=== PATIENT | male | born 1980 | race African-American/Black ===

== ENCOUNTER 2017-12-02 07:29 | Emergency (ER) | payer OTHER ==
[~2017-12-02] VITALS: Ht 180.3 cm; Wt 99.8 kg
[~2017-12-02 07:29] MED LIST: ALKA-SELTZER E500 M1; CORTISPORIN OTI10 M2 OTIC; HYDROCODONE-AP1 EAC6 PO; PREDNISONE 20 M20 M1 PO; SENNA S TABLET1 EACH PO; ZANTAC 150MG T150 MG PO
[2017-12-02] MEDS ORDERED: NORFLEX100 MG PO (08:42)
[2017-12-02] MEDS ORDERED: NAPROSYN500 MG PO (08:42)
[2017-12-02 09:38] VITALS: BP 135/93
[2018-07-31] MEDS ORDERED: FLEXERIL PO (06:15)
[2018-07-31] MEDS ORDERED: NAPROSYN500 MG PO (06:15)
== END 2017-12-02 09:40 | disposition home or self-care (01) ==
LOC: ER 07:29
DX: G44.209 Tension-type headache, unspecified, not intractable (principal); I10 Essential (primary) hypertension; K21.9 Gastro-esophageal reflux disease without esophagitis; F17.210 Nicotine dependence, cigarettes, uncomplicated

== ENCOUNTER 2019-06-11 03:49 | Emergency (ER) | payer OTHER ==
[~2019-06-11] VITALS: Ht 180.3 cm; Wt 99.8 kg
[~2019-06-11 03:49] MED LIST changes: +FLEXERIL PO; +NAPROSYN500 MG PO; +NORFLEX100 MG PO
[2019-06-11] MEDS ORDERED: ACETYL SALICYL500 GM PO (04:23)
[2019-06-11] MEDS ORDERED: PROMS25 WY RECTAL (05:41)
[2019-06-11] MEDS ORDERED: BUTALB-APAP-CA1 EACH PO (05:41)
[2019-06-11 05:52] VITALS: BP 161/70
== END 2019-06-11 05:57 | disposition home or self-care (01) ==
LOC: ER 03:49
DX: G43.909 Migraine, unspecified, not intractable, without status migrainosus (principal); R11.2 Nausea with vomiting, unspecified; F17.210 Nicotine dependence, cigarettes, uncomplicated; K21.9 Gastro-esophageal reflux disease without esophagitis; Z79.82 Long term (current) use of aspirin

== ENCOUNTER 2020-11-20 18:02 | Emergency (ER) | payer OTHER ==
[~2020-11-20] VITALS: Ht 180.3 cm; Wt 105.7 kg
[~2020-11-20 18:02] MED LIST changes: +ACETYL SALICYL500 GM PO; +BUTALB-APAP-CA1 EACH PO; +PROMS25 WY RECTAL
[2020-11-20 20:04] LABS: CALCIUM 9.2 mg/dL (8.5-10.1); CREATININE 1.3 mg/dL (0.7-1.3); POTASSIUM 3.6 mmol/L (3.5-5.1)
[2020-11-20 20:05] LABS: MAGNESIUM 2.1 mg/dL (1.8-2.4)
[2020-11-20 20:51] VITALS: BP 141/93
[2020-11-20] MEDS ORDERED: ZANAFLEX4 MG PO (21:10)
== END 2020-11-20 21:18 | disposition home or self-care (01) ==
LOC: ER 18:02
PROVIDERS: Nurse Practitioner
DX: M79.661 Pain in right lower leg (principal); M79.662 Pain in left lower leg; G43.909 Migraine, unspecified, not intractable, without status migrainosus; K21.9 Gastro-esophageal reflux disease without esophagitis; F17.210 Nicotine dependence, cigarettes, uncomplicated

== ENCOUNTER 2020-11-30 20:28 | Emergency (ER) | payer OTHER ==
[~2020-11-30] VITALS: Ht 180.3 cm; Wt 104.3 kg
[~2020-11-30 20:28] MED LIST changes: +ZANAFLEX4 MG PO
[2020-11-30] MEDS ORDERED: MUCINEX600 MG PO (20:41)
[2020-11-30 21:33] LABS: ABSOLUTE NEUTROPHILS 3.1 thou/uL (1.4-8.2); BASOPHILS 0.2 % (0.0-2.0); HEMATOCRIT 46.7 % (42.0-52.0); HEMOGLOBIN 15.5 gm/dL (14.0-18.0); LYMPHOCYTES 30.5 % (24.0-44.0); MCH 30.4 pg (26.0-34.0); MCHC 33.2 g/dL (28.0-37.0); MCV 91.6 fL (80.0-100.0); MONOCYTES 12.5 % (1.0-8.0); PLATELET COUNT 176 thou/uL (150-400); POLYS 56.8 % (36.0-66.0); RDW 13.4 % (10.5-14.5); WBC 5.4 thou/uL (4.0-11.0)
[2020-11-30 21:47] LABS: ANION GAP 14 mmol/L (7-16); BUN 15 mg/dL (7-18); CALCIUM 8.8 mg/dL (8.5-10.1); CHLORIDE 101 mmol/L (98-107); CO2 22 mmol/L (21-32); CREATININE 1.6 mg/dL (0.7-1.3); GLUCOSE 103 mg/dL (74-106); POTASSIUM 3.5 mmol/L (3.5-5.1); SODIUM 137 mmol/L (136-145)
[2020-11-30 21:57] LABS: ALBUMIN 4.2 g/dL (3.4-5.0); SGOT 18 U/L (15-37); SGPT 27 U/L (30-65); TOTAL BILIRUBIN 0.5 mg/dL (0.2-1.0); TOTAL PROTEIN 7.7 g/dL (6.4-8.2); TROPONIN-I <0.06 ng/mL (<0.06)
[2020-11-30] MEDS ORDERED: PROAIR HFA8.5 GM INH (22:18)
[2020-11-30] MEDS ORDERED: AMOXICILLIN 50500 MG PO (22:18)
[2020-11-30] MEDS ORDERED: ZPAK PO (22:18)
[2020-11-30] MEDS ORDERED: PREDNISONE 20 M20 MG PO (22:18)
[2020-11-30 22:42] VITALS: BP 129/85
[2020-11-30] MEDS ORDERED: ULTRAM 50MG TAB50 MG PO (23:06)
--- NOTE | 2020-12-01 12:34 | EKG ---
[address] [address] [place] [address] ELECTROCARDIOGRAM REPORT Name: PATTIE VERASID DE LOS SANTOS Room #: [facility]P [facility] [id number] Admission: 11/30/20 Attend Phys: Discharge: 11/30/20 Date of : 80 Report #: [id number] [facility] [place] ED Test Date: 2020-11-30 Test Time: 21:14:32 Pat Name: GINETTE VERA Department: Room: Gender: Windows Server Specialist: [facility] : 1980 Requested By: Fanny Del Castillo Order Number: [id number] MD: Salvador Rocha Measurements Intervals [place] Rate: 85 P: 36 NM: 164 QRS: -35 QRSD: 98 T: 16 QT: 356 QTc: 424 Interpretive Statements Sinus rhythm Abnormal R-wave progression, late transition Compared to ECG 10/18/2016 01:51:51 No significant change was found Electronically Signed On 12-01-2020 12:34:04 EXCHANGE FLOOR MANAGER by Salvador Rocha [email or web address] <ELECTRONICALLY SIGNED> By: Salvador Rocha MD, [facility] 12/01/20 1234 2114 13 Salvador Rocha MD, FACC /EPI
== END 2020-11-30 23:26 | disposition home or self-care (01) ==
LOC: ER 20:28
PROVIDERS: Physician Assistant
DX: U07.1 COVID-19 (principal); J18.9 Pneumonia, unspecified organism; E86.0 Dehydration; F17.210 Nicotine dependence, cigarettes, uncomplicated; G43.909 Migraine, unspecified, not intractable, without status migrainosus; K21.9 Gastro-esophageal reflux disease without esophagitis

== ENCOUNTER 2020-12-03 01:56 | Inpatient (IN) | payer OTHER ==
[2020-12-03] VITALS (61 sets, daily range): BP systolic 120–158; BP diastolic 49–91
[~2020-12-03] VITALS: Ht 180.3 cm; Wt 99.3 kg
[~2020-12-03 01:56] MED LIST changes: +AMOXICILLIN 50500 MG PO; +MUCINEX600 MG PO; +PREDNISONE 20 M20 MG PO; +PROAIR HFA8.5 GM INH; +ULTRAM 50MG TAB50 MG PO; +ZPAK PO
[2020-12-03 02:27] LABS: ABSOLUTE NEUTROPHILS 8.2 thou/uL (1.4-8.2); BASOPHILS 0.1 % (0.0-2.0); HEMATOCRIT 43.9 % (42.0-52.0); HEMOGLOBIN 14.4 gm/dL (14.0-18.0); LYMPHOCYTES 10.5 % (24.0-44.0); MCH 29.7 pg (26.0-34.0); MCHC 32.8 g/dL (28.0-37.0); MCV 90.5 fL (80.0-100.0); MONOCYTES 5.2 % (1.0-8.0); PLATELET COUNT 187 thou/uL (150-400); POLYS 84.2 % (36.0-66.0); RBC 4.86 mil/uL (4.50-6.00); WBC 9.8 thou/uL (4.0-11.0)
[2020-12-03 02:39] LABS: CALCIUM 9.4 mg/dL (8.5-10.1); CREATININE 1.4 mg/dL (0.7-1.3); POTASSIUM 3.8 mmol/L (3.5-5.1)
[2020-12-03 02:43] LABS: ALBUMIN 4.1 g/dL (3.4-5.0); DIRECT BILIRUBIN 0.1 mg/dL (<0.1-0.2); TOTAL BILIRUBIN 0.5 mg/dL (0.2-1.0); TOTAL PROTEIN 7.7 g/dL (6.4-8.2)
[2020-12-03 02:52] LABS: BE(vivo) -1.9 mmol/L (-2 to +3); PCO2 30.7 mmHg (35.0-45.0); PO2 64.9 mmHg (80.0-100.0); pH 7.452 (7.360-7.450); sO2 93.9 % (92.0-98.0)
[2020-12-03 03:13] LABS: URINE BILIRUBIN NEGATIVE (Negative); URINE BLOOD NEGATIVE (Negative); URINE CLARITY CLEAR; URINE COLOR YELLOW; URINE GLUCOSE-RANDOM* NEGATIVE (Negative); URINE KETONES TRACE (Negative); URINE LEUKOCYTES-REFLEX NEGATIVE (Negative); URINE NITRITE-REFLEX NEGATIVE (Negative); URINE PROTEIN (DIPSTICK) TRACE (Negative); URINE SPECIFIC GRAVITY 1.025 (1.005-1.035); URINE UROBILINOGEN 0.2 E.U./dl (0.2-1.0)
--- NOTE | 2020-12-03 06:07 | NUR ---
RN admitted patient to ICU room 239. Patient on optiflow 45L and 50%. Sats in the upper 90's. Respiratory rate 20-30's. Pulmonary and ID consults called. This RN spoke to Lyle Mortensen NP who admitted patint to clarify if she wanted to iniate sepsis protocol. Clarified not a full sepsis protocol, but wants to continue to treat with fluids and antibiotics. Will continue to monitor closely.
--- NOTE | 2020-12-03 06:37 | NUR ---
This RN spoke to patients girlfriend at 0630. Updated on plan of care and patient status. All questions answered.
--- NOTE | 2020-12-03 07:25 | EKG ---
[address] [address] [address] [facility] [place] [address] ELECTROCARDIOGRAM REPORT Name: GINETTE VERA MAGALI Room #: 239-P ADM IN M.R.#: [id number] Admission: 12/03/20 Attend Phys: Ryan Reddy MD Discharge: Date of : 80 Report #: [id number] [facility] ED Test Date: 2020-12-03 Test Time: 02:39:11 Pat Name: GINETTE VERA Department: Room: 239 Gender: M Admission Discharge Rn: : 1980 Requested By: Nia De La O Order Number: [id number] : Silvino Etienne Measurements Intervals [place] Rate: 101 P: 33 CO: 159 QRS: -16 QRSD: 95 T: 31 QT: 327 QTc: 424 Interpretive Statements Sinus tachycardia Borderline left axis deviation Compared to ECG 11/30/2020 21:14:32 Sinus rhythm no longer present Electronically Signed On 12-03-2020 7:24:52 PAPER BAG PRESS OPERATOR by Silvino Etienne [email or web address] <ELECTRONICALLY SIGNED> By: Silvino Etienne MD, [facility] 12/03/20 0724 0239 0239 Silvino Etienne MD, FACC /EPI
--- NOTE | 2020-12-03 09:43 | NUR ---
ASSESSMENT: CM REVIEWED CHART AND SPOKE WITH PT. PT IS ALERT AND ORIENTED X4. PT WAS ADMITTED DUE TO SHORTNESS OF BREATH AND IS CCOVID POSITIVE. PT REPORTS LIVING IN AN APT WITH HIS GIRLFRIEND AND SON. PT IS CURRENTLY ON OPTIFLOW. PT REPORTS HE IS FULLY INDEPENDENT WITH ADLS AND AMBULATION AND HAS NO DME AT HOME. PT IS SHOWING PT PAY AND CONFIRMS HE HAS NO INSURANCE. MED ASSIST IS TO SEE PT. PT REPORTS THAT HIS VEHICLE IS PARKED IN THE ER PARKING LOT AND CM NOTIFIED SECURITY OF HIS MAKE/MODEL AND THEY REPORT IT IS OK FOR HIM TO LEAVE IT THERE. PT REPORTS NO HX OF HH. PT HAS NO CURRENT PRIMARY CARE PHYSICIAN. CM LEFT CONTACT INFORMATION FOR FOLLOW UP CARE IN DISCHARGE PAPERWORK. CM WILL CONTINUE TO FOLLOW TO ASSIST NEEDED.
--- NOTE | 2020-12-03 09:57 | NUR ---
ASSUMED BEBE AT 0700. SPOKE WITH PATIENT'S PARTNER, CANDY, FROM [phone]. RN GAVE HER THE 4 DIGIT ACCOUNT NUMBER AND UPDATED/EDUCATED HER ON THE PATIENT'S CONDITION AND PLAN OF CARE.
--- NOTE | 2020-12-03 18:39 | HC ---
[facility] [place] [place] [address] CONSULTATION Name: GINETTE VERA JR Room #: 239-P ADM IN M.R.#: [id number] Admission: 12/03/20 Attend Phys: Ryan Reddy MD Discharge: Date of : 80 Report #: [id number] THIS REPORT FOR: cc: SUMA - No family physician/PCP FAM - No family physician/PCP Sheldon Navarro MD ~ DATE OF SERVICE: 12/03/2020 INFECTIOUS DISEASE CONSULTATION REASON FOR CONSULTATION: I was asked to evaluate concerning COVID-19 infection. HISTORY OF PRESENT ILLNESS: The patient is a 39-year-old who presented to the Emergency Room with a 5-day history of fever, cough and progressive dyspnea. This is associated with mild headache, nausea, and loose stools. He had intermittent episodes of vomiting. He was seen in the Emergency Room 5 days ago and treated for pneumonia with amoxicillin, azithromycin, and prednisone. He worsened and brought in through the Emergency Room again on 12/03/2020 and respiratory distress. He is now on high-flow oxygen. He was transferred to the Intensive Care Unit. REVIEW OF SYSTEMS: 14-point review of system was negative other than what has been described above. ALLERGIES: None. MEDICATIONS: As noted on his MAR, which were reviewed. PAST MEDICAL HISTORY: Migraine headaches, gastroesophageal reflux, and cholecystectomy. FAMILY HISTORY: No report of tuberculosis. SOCIAL HISTORY: Smoker of cigarettes. No recent alcohol use. His girlfriend and his children also screened positive for COVID-19. PHYSICAL EXAMINATION: VITAL SIGNS: Afebrile and hemodynamically stable. GENERAL: He is alert and cooperative on high flow oxygen per nasal cannula. SKIN: Without rash or decubitus. No palpable adenopathy. EYES: Without scleral icterus. MOUTH: Without mucositis. NECK: Supple. LUNGS: Coarse breath sounds, mostly in the posterior bases. HEART: Regular, without murmur, gallop or rub. [facility] [address] [place] [address] CONSULTATION Name: GINETTE VERA Room #: [address] [place] [address] [place] [facility]#: [id number] Admission: 12/03/20 Attend Phys: Ryan Reddy MD Discharge: Date of : 80 Report #: [id number] ABDOMEN: Soft and nontender with no hepatosplenomegaly or mass. EXTREMITIES: Without clubbing, cyanosis, or edema. NEUROLOGIC: Cranial nerves intact. Strength in his upper and lower extremities was symmetric and within normal limits. Sensation to fine touch in the upper and lower extremities was within normal limits. Mood without anxiety or depression. No spinal tenderness or CVA tenderness. LABORATORY STUDIES: Reviewed. MICROBIOLOGY: Reports reviewed. IMAGING STUDIES: Chest x-ray reviewed. IMPRESSION: 1. A 39-year-old with COVID-19 pneumonia and acute respiratory distress syndrome and respiratory failure. 2. Acute kidney injury. RECOMMENDATIONS: We will continue combination antiviral therapy and antibiotics. Await culture results. Discussed risks and benefits of convalescent plasma with the patient. I would recommend transfusion in his case since we early in his infection. The patient will remain in the Intensive Care Unit for full support. <ELECTRONICALLY SIGNED> By: Sheldon Navarro MD 12/03/20 1839 [id number] 1835 Sheldon Navarro MD /nt
[2020-12-04] VITALS (22 sets, daily range): BP systolic 116–159; BP diastolic 68–93
[2020-12-04 04:10] LABS: ALBUMIN 3.5 g/dL (3.4-5.0); CREATININE 1.1 mg/dL (0.7-1.3); POTASSIUM 3.8 mmol/L (3.5-5.1); TOTAL BILIRUBIN 0.4 mg/dL (0.2-1.0); TOTAL PROTEIN 6.9 g/dL (6.4-8.2)
[2020-12-04 04:12] LABS: ALBUMIN 3.4 g/dL (3.4-5.0); DIRECT BILIRUBIN 0.1 mg/dL (<0.1-0.2); PHOSPHORUS 3.1 mg/dL (2.5-4.9); TOTAL BILIRUBIN 0.4 mg/dL (0.2-1.0); TOTAL PROTEIN 6.9 g/dL (6.4-8.2)
[2020-12-04 05:13] LABS: ABSOLUTE NEUTROPHILS 6.5 thou/uL (1.4-8.2); BASOPHILS 0.3 % (0.0-2.0); HEMATOCRIT 41.6 % (42.0-52.0); HEMOGLOBIN 13.3 gm/dL (14.0-18.0); LYMPHOCYTES 17.9 % (24.0-44.0); MCH 29.9 pg (26.0-34.0); MCHC 32.1 g/dL (28.0-37.0); MCV 93.2 fL (80.0-100.0); MONOCYTES 6.1 % (1.0-8.0); PLATELET COUNT 199 thou/uL (150-400); POLYS 75.7 % (36.0-66.0); RBC 4.46 mil/uL (4.50-6.00); RDW 13.7 % (10.5-14.5); WBC 8.6 thou/uL (4.0-11.0)
--- NOTE | 2020-12-04 06:32 | NUR ---
Patient progressing well throughout night. Weaned down to 30L and 35% FiO2 on optiflow. Tolerated getting up to the chair and toilet well. Sats in the 90's, RR under control. Patient complained of indigestion. Low grade fevers throughout night. Bowel movement in the AM. Patient received convalescent plasma and antibiotics. Progressing towarsd goals.
--- NOTE | 2020-12-04 06:48 | NUR ---
This RN spoke to Karen, girlfriend at 0645. Updated on patient status and all questions answered.
--- NOTE | 2020-12-04 19:27 | NUR ---
Mr Sanchez made great progress in his plan of care. He tolerates 4L of rigid wall nasal cannula. While ambulating he drops to 85% for less than 2 min. He reports "feeling a lot better." Aurea downgraded to tele status.
[2020-12-05 00:23] VITALS: BP 132/89
[2020-12-05 05:59] LABS: ABSOLUTE NEUTROPHILS 3.1 thou/uL (1.4-8.2); BASOPHILS 0.7 % (0.0-2.0); HEMATOCRIT 43.6 % (42.0-52.0); HEMOGLOBIN 14.2 gm/dL (14.0-18.0); LYMPHOCYTES 27.8 % (24.0-44.0); MCH 29.8 pg (26.0-34.0); MCHC 32.6 g/dL (28.0-37.0); MCV 91.3 fL (80.0-100.0); MONOCYTES 12.6 % (1.0-8.0); PLATELET COUNT 235 thou/uL (150-400); POLYS 58.9 % (36.0-66.0); RBC 4.78 mil/uL (4.50-6.00); RDW 13.2 % (10.5-14.5); WBC 5.3 thou/uL (4.0-11.0)
[2020-12-05 06:05] LABS: ALBUMIN 3.3 g/dL (3.4-5.0); ANION GAP 11 mmol/L (7-16); BUN 16 mg/dL (7-18); CHLORIDE 103 mmol/L (98-107); CO2 24 mmol/L (21-32); CREATININE 1.2 mg/dL (0.7-1.3); GLUCOSE 98 mg/dL (74-106); PHOSPHORUS 4.6 mg/dL (2.5-4.9); POTASSIUM 3.9 mmol/L (3.5-5.1); SODIUM 138 mmol/L (136-145)
--- NOTE | 2020-12-05 06:17 | NUR ---
Patient remains on 4L NC. VSS. Afebrile. Plan to transfer to 3W, has CC/tele orders. Progressing towards goals.
[2020-12-05 08:58] LABS: DIRECT BILIRUBIN < 0.1 mg/dL (<0.1-0.2); SGOT 18 U/L (15-37); SGPT 31 U/L (16-63); TOTAL BILIRUBIN 0.4 mg/dL (0.2-1.0); TOTAL PROTEIN 7.2 g/dL (6.4-8.2)
[2020-12-05 16:02] VITALS: BP 135/88
[2020-12-05 20:00] VITALS: BP 130/75
[2020-12-06 00:02] VITALS: BP 137/74
[2020-12-06 04:00] VITALS: BP 116/75
[2020-12-06 05:23] LABS: ALBUMIN 3.5 g/dL (3.4-5.0); CALCIUM 9.1 mg/dL (8.5-10.1); CREATININE 1.1 mg/dL (0.7-1.3); DIRECT BILIRUBIN 0.1 mg/dL (<0.1-0.2); PHOSPHORUS 4.9 mg/dL (2.6-4.7); POTASSIUM 4.1 mmol/L (3.5-5.1); TOTAL BILIRUBIN 0.5 mg/dL (0.2-1.0); TOTAL PROTEIN 6.9 g/dL (6.4-8.2)
--- NOTE | 2020-12-06 10:26 | NUR ---
ASSUMMED CARE OF THE PATIENT FROM FELIPA RN THE NIGHT NURSE AT 0700. PATIENT IS AWAITING ROOM ON . PATIENT IS PROGRESSING TOWARDS OUTCOME GOALS. REPORT CALLED TO AMADO ON 3W.
--- NOTE | 2020-12-06 11:20 | NUR ---
TRANSFERRED TO ROOM 357 PER W/C WITH O2 at 4l/nc, AND BELONGINGS WITHOUT INCIDENT.
[2020-12-06 11:30] VITALS: BP 148/85
--- NOTE | 2020-12-06 13:36 | NUR ---
KWAME reviewed chart and spoke with nursing and attending physician. Pt was transferred to from ICU earlier today. Pt is in Enhanced Isolation due to COVID-19. Pt is afebrile and on 3-4L of O2. Pt is on IV abx and IV steroids. Pt is completing course of Remdesivir. KWAME spoke with pt via phone. Pt is alert/orientated x 4. Pt states that he has the paperwork to complete for his Medicaid application. Pt does not currently have health insurance. Will need a rest/exercise oximetry to determine home O2 needs. SW notified attending physician. Discussed possible need for therapy evals. Plan is for pt to discharge home when medically stable. KWAME is following to assist as needed with discharge planning.
[2020-12-06 16:04] VITALS: BP 154/63
[2020-12-07 04:35] VITALS: BP 144/83
--- NOTE | 2020-12-07 05:01 | NUR ---
PROGRESS VSS, AFEBRILE PT A/O X4. LUNGS WITH COARSE CRACKLES IN UPPER LOBES DIMINISHED IN BASES COUGHING UP PINK TINGED THICK SPUTUM O2 SATS DROPPED TO 80'S RT INCREASED O2 TO 4 LITERS SATS IN MID 90'S NOW. TELE INTACT READING SR WITH RATES IN THE 80'S. DENIES PAIN VOIDING QS, CONTINUE POC.
[2020-12-07 06:09] LABS: ALBUMIN 3.4 g/dL (3.4-5.0); ANION GAP 9 mmol/L (7-16); BUN 18 mg/dL (7-18); CALCIUM 9.3 mg/dL (8.5-10.1); CHLORIDE 102 mmol/L (98-107); CO2 24 mmol/L (21-32); CREATININE 1.1 mg/dL (0.7-1.3); DIRECT BILIRUBIN < 0.1 mg/dL (<0.1-0.2); GLUCOSE 88 mg/dL (74-106); PHOSPHORUS 4.1 mg/dL (2.6-4.7); POTASSIUM 4.2 mmol/L (3.5-5.1); SGOT 24 U/L (15-37); SGPT 51 U/L (16-63); SODIUM 135 mmol/L (136-145); TOTAL BILIRUBIN 0.4 mg/dL (0.2-1.0)
[2020-12-07 07:30] VITALS: BP 123/85
[2020-12-07 11:08] VITALS: BP 129/73
--- NOTE | 2020-12-07 11:19 | NUR ---
PT SEEN BY TODAY, PT'S PRIMARY CONCERN THIS MORNING WAS WHETHER HE WAS GETTING ENOUGH OXYGENATION TO GO HOME WITHOUT O2, RN EXPLAINED THAT PT IS CURRENTLY ON RA AT THIS TIME AND THE PULSE OXIMETRY READING SHOWS, PT IS AT A NORMAL THAT IS CONSIDERED WITHIN DEFINED LIMITS. PT VERBALIZED UNDERSTANDING, ORDERED A WALKING TEST WITH THE RT WHICH IS TO BE COMPLETED PRIOR TO DISCHARGE. RN CONITNUING TO MONITOR
--- NOTE | 2020-12-07 13:48 | NUR ---
DISCHARGE NOTE: KWAME reviewed chart and spoke with nursing and attending physician. Pt is medically stable for discharge home today. Rest/exercise oximetry completed. Pt does not need home O2. KWAME spoke with pt via phone to discuss discharge plan. Pt verbalized understanding of discharge plan. Any new prescriptions will be sent to [facility]. Case Mgmt to vouch. Pt is in the process of applying for Medicaid through [employer]. KWAME sent Health Resource Guide to 3 for nursing to give pt to establish primary care. KWAME discussed with attending physician. KWAME followed up with pt regarding discharge meds. Pt does not have an inhaler at home. Order for inhaler to be sent to [facility]. Other new prescriptions are for over the counter meds. KWAME discussed with pt, who is agreeable with discharge plan. KWAME faxed face sheet to the outpatient pharmacy. Pt's family will have transportation home when discharged. No additional SW needs identified at this time, but is available to assist should needs arise.
[2020-12-07] MEDS ORDERED: PROAIR HFA8.5 GM INH (14:03)
[2020-12-07] MEDS ORDERED: VITCB500GO PO (14:03)
[2020-12-07] MEDS ORDERED: ZINC SULFATE 2220 MG PO (14:03)
[2020-12-07] MEDS ORDERED: VITAMIN B-1100 M2 PO (14:03)
[2020-12-07] MEDS ORDERED: VITAMIN D325 MC1 PO (14:03)
[2020-12-07 14:47] VITALS: BP 129/73
[2020-12-07 15:31] VITALS: BP 118/66
== END 2020-12-07 17:40 | disposition home or self-care (01) | DRG 871 ==
LOC: ER 01:56 → EROBS 03:02 → ICU 04:32 → 3W 12-06 11:42
PROVIDERS: Emergency Medicine; Internal Medicine; Internal Medicine Pulmonary Disease; Nurse Practitioner Family; Specialist; ADMIT Hospitalist; ATTEND Hospitalist
PROC: XW033E5 Introduction of Remdesivir Anti-infective into Peripheral Vein, Percutaneous Approach, New Technology Group 5 (ICD-10-PCS; principal; 2020-12-03)
PROC: XW13325 Transfusion of Convalescent Plasma (Nonautologous) into Peripheral Vein, Percutaneous Approach, New Technology Group 5 (ICD-10-PCS; principal; 2020-12-03)
PROC: 5A0945A Assistance with Respiratory Ventilation, 24-96 Consecutive Hours, High Flow/Velocity Cannula (ICD-10-PCS; principal; 2020-12-03)
DX: A41.9 Sepsis, unspecified organism (principal); U07.1 COVID-19; J12.82 Pneumonia due to coronavirus disease 2019; J96.01 Acute respiratory failure with hypoxia; N17.9 Acute kidney failure, unspecified; K21.9 Gastro-esophageal reflux disease without esophagitis; G43.909 Migraine, unspecified, not intractable, without status migrainosus; Z86.16 Personal history of COVID-19; Z79.899 Other long term (current) drug therapy
CPT/HCPCS: 10078; 10203; 10879; 85076

== ENCOUNTER 2021-10-13 08:45 | Emergency (ER) | payer BC ==
[~2021-10-13] VITALS: Ht 180.3 cm; Wt 104.3 kg
[~2021-10-13 08:45] MED LIST changes: +VITAMIN B-1100 M2 PO; +VITAMIN D325 MC1 PO; +VITCB500GO PO; +ZINC SULFATE 2220 MG PO
[2021-10-13] MEDS ORDERED: LIPITOR 20 MG T20 M1 PO (09:03)
[2021-10-13] MEDS ORDERED: VITAMIN D250 MCG PO (09:03)
[2021-10-13 09:57] LABS: HEMATOCRIT 46.1 % (42.0-52.0); HEMOGLOBIN 15.2 gm/dL (14.0-18.0); MCV 90.9 fL (80.0-100.0); RBC 5.07 mil/uL (4.50-6.00); RDW 13.5 % (10.5-14.5); WBC 4.4 thou/uL (4.0-11.0)
[2021-10-13 10:02] LABS: CREATININE 1.1 mg/dL (0.7-1.3)
[2021-10-13] MEDS ORDERED: IBU600 MG PO (10:25)
[2021-10-13 10:36] VITALS: BP 128/85
== END 2021-10-13 10:37 | disposition home or self-care (01) ==
LOC: ER 08:45
PROVIDERS: Emergency Medicine
DX: M25.561 Pain in right knee (principal); M25.562 Pain in left knee; G43.909 Migraine, unspecified, not intractable, without status migrainosus; K21.9 Gastro-esophageal reflux disease without esophagitis; F17.210 Nicotine dependence, cigarettes, uncomplicated; F12.90 Cannabis use, unspecified, uncomplicated; Z86.16 Personal history of COVID-19; Z79.51 Long term (current) use of inhaled steroids; Z79.891 Long term (current) use of opiate analgesic; Z79.899 Other long term (current) drug therapy

== ENCOUNTER 2021-10-27 23:05 | Emergency (ER) | payer OTHER, BC ==
[~2021-10-27] VITALS: Ht 180.3 cm; Wt 101.2 kg
[~2021-10-27 23:05] MED LIST changes: +IBU600 MG PO; +LIPITOR 20 MG T20 M1 PO; +VITAMIN D250 MCG PO
[2021-10-27] MEDS ORDERED: VALIUM2 MG PO (23:44)
[2021-10-27 23:55] VITALS: BP 130/82
== END 2021-10-27 23:56 | disposition home or self-care (01) ==
LOC: ER 23:05
DX: M54.50 Low back pain, unspecified (principal); G43.909 Migraine, unspecified, not intractable, without status migrainosus; K21.9 Gastro-esophageal reflux disease without esophagitis; F17.210 Nicotine dependence, cigarettes, uncomplicated; F12.90 Cannabis use, unspecified, uncomplicated; Z86.16 Personal history of COVID-19; Z79.891 Long term (current) use of opiate analgesic; Z79.899 Other long term (current) drug therapy; V43.02XA Car driver injured in collision with other type car in nontraffic accident, initial encounter; Y93.89 Activity, other specified; Y92.89 Other specified places as the place of occurrence of the external cause; Y99.8 Other external cause status